=== PATIENT | male | born 1990 | race African-American/Black ===

== ENCOUNTER 2020-06-06 20:59 | Emergency (ER) | payer SELFPAY ==
[~2020-06-06] VITALS: Ht 165.1 cm; Wt 55.0 kg
[2020-06-06] MEDS ORDERED: IBUPROFEN 400MG TABLET PO ONE (21:30)
[2020-06-06] MEDS ORDERED: CEFTRIAXONE SODIUM 1 G/VIAL IM ONE (21:30)
[2020-06-06] MEDS ORDERED: LIDOCAINE HCL 1% 20ML VIAL (Pyxis) INJ INFIL ONE (21:30)
[2020-06-06 21:49] VITALS: BP 137/64
[2020-06-06 22:49] LABS: BASOPHILS % 0.4 % (0.0-2.0); EOSINOPHILS % 1.3 % (0.0-5.0); HEMATOCRIT. 49.4 % (42.0-52.0); HEMOGLOBIN. 16.6 g/dL (14.0-18.0); LYMPHOCYTES % 20.1 % (20.0-50.0); MEAN CORPUSCULAR HEMOGLOBIN 30.4 pg (28.0-32.0); MEAN CORPUSCULAR VOLUME 90.7 fL (80.0-94.0); MEAN PLATELET VOLUME 9.8 fl (7.4-10.4); MONOCYTES % 8.2 % (2.0-8.0); PLATELET 148 x1000/uL (130-400); RED BLOOD CELL COUNT 5.45 mill/uL (4.7-6.1); RED CELL DISTRIBUTION WIDTH 14.1 % (11.6-14.6)
[2020-06-06 22:58] LABS: CHLORIDE 105 mEq/L (98-107)
== END 2020-06-07 00:21 | disposition home or self-care (01) ==
LOC: ER 20:59
DX: L03.116 Cellulitis of left lower limb (principal); Z98.890 Other specified postprocedural states
CPT/HCPCS: 36415; 73630; 80048; 85025; 96372; 99284; J0696; J3490; Z7610